=== PATIENT | female | born 1945 | race Caucasian/White ===

== ENCOUNTER 2019-12-31 11:12 | Inpatient (IN) | payer MEDICARE, OTHER ==
--- NOTE | 2019-12-31 11:34 | EDM.PDOC ---
ED HPI GENERAL MEDICAL PROBLEM - General Stated Complaint: right sided pain Time Seen by Provider: 12/31/19 11:15 Source of Information: Reports: Patient History Limitations: Reports: No Limitations - History of Present Illness INITIAL COMMENTS - FREE TEXT/NARRATIVE: Patient comes emergency department today from home with complaints of severe right-sided lower chest pain and right upper abdomen pain. Patient has a significant history of lung cancer with metastatic disease to the brain. She is here from [facility]. She was just set up with hospice yesterday at home as the initial intake. She has had increasing weakness and falls at home over the past couple of weeks. She has had very little appetite. She has eaten very little. She drinks very little fluids. She has developed this right upper quadrant right lateral chest pain over the past couple weeks it is getting so severe that she can barely move. She has not been taking anything for pain for it at home. She has had some nausea no vomiting. No chest pain. No shortness of breath difficulty breathing cough or congestion. She denies any fever or chills. She denies any hematuria dysuria or urinary frequency. No loss of taste or smell. No sinus congestion drainage or pressure. No black or tarry stools or diarrhea. They did speak with the hospice nurse this morning and she was advised to come to the emergency department. He does have a history of atrial fibrillation for which she was on Eliquis until just a couple of months ago that they took her off because of some type of concern intracranial with her metastatic lung cancer. Right Thoracic Pain Score (Numeric/FACES): 7 - Related Data Allergies Allergy/AdvReac Type Severity Reaction Status Date / Time No Known Allergies Allergy Verified 12/31/19 12:53 Home Meds: Home Meds . [Unable to Verify Home Med List] 12/31/19 [History] ED ROS GENERAL - Review of Systems Review Of Systems: Comprehensive ROS is negative, except as noted in HPI. ED EXAM, GENERAL - Physical Exam Exam: See Below Free Text/Narrative:: Is a very frail-appearing 74-year-old female that appears moderately ill. She is alert appropriate. No acute distress. She appears somewhat cachectic. Exam Limited By: No Limitations General Appearance: Alert, WD/WN, No Apparent Distress, Cachetic Eye Exam: Bilateral Eye: EOMI Ears: Normal External Exam, Normal TMs Nose: Normal Inspection Throat/Mouth: Normal Teeth, Normal Gums. No: Normal Inspection (Mucosa is exquisitely dry. Her lips are flat and cracked) Head: Atraumatic, Normocephalic Neck: Normal Inspection, Supple, Non-Tender Respiratory/Chest: No Respiratory Distress, Lungs Clear, Normal Breath Sounds, No Accessory Muscle Use, Chest Non-Tender (Patient of the chest does not elicit any tenderness. There is no bruising swelling ecchymosis other signs of trauma to the chest.) Cardiovascular: Normal Peripheral Pulses, Regular Rate, Rhythm, Tachycardia (Has a quite bounding tachycardic irregular pulse she does have a history of atrial fibrillation.), Irregularly Irregular GI/Abdominal: Normal Bowel Sounds, Soft, Guarding (She has guarding without rebound and negative Chacko sign to the right upper quadrant. Rest of the abdomen is soft and nontender nondistended.) Back Exam: Normal Inspection, Full Range of Motion Extremities: Normal Inspection, Normal Range of Motion, Non-Tender, No Pedal Edema, Normal Capillary Refill Neurological: Alert, Oriented, Normal Cognition, No Motor/Sensory Deficits Psychiatric: Flat Affect Skin Exam: Dry, Intact, Cool, Pallor #1 Interpretation EKG Date: 12/31/19 Time: 12:09 Rhythm: A-Fib Rate (Beats/Min): 143 [place]: Normal P-Wave: Absent QRS: Normal ST-T: Normal QT: Normal Comparison: NA - No Prior EKG Course - Vital Signs Last Recorded V/S: Last Vital Signs Temp 98.1 F 12/31/19 10:50 Pulse 110 H 12/31/19 14:51 Resp 28 H 12/31/19 14:51 BP 85/58 L 12/31/19 14:51 Pulse Ox 95 12/31/19 14:51 - Orders/Labs/Meds Orders: Active Orders 24 hr Category Date Time Status Sodium Chloride 0.9% [Saline Flush] Med 12/31/19 11:37 Active 10 ml FLUSH ASDIRECTED PRN Peripheral IV Insertion Adult [OM.PC] Stat Oth 12/31/19 11:36 Ordered Medication Orders Sodium Chloride (Saline Flush) 10 ml FLUSH ASDIRECTED PRN PRN Reason: Keep Vein Open Labs: Laboratory Tests 12/31/19 12/31/19 12/31/19 Range/Units 11:10 11:49 11:49 WBC 11.7 H (4.0-10.0) x10^3/uL RBC 3.94 L (4.00-5.50) x10^6/uL Hgb 12.2 (12.0-16.0) g/dL Hct 38.1 (33.0-47.0) % MCV 96.7 H (78.0-93.0) fL MCH 31.0 (26.0-32.0) pg MCHC 32.0 (32.0-36.0) g/dL RDW Coeff of Martín 17.1 H (10.0-15.0) % Plt Count 196 (130-400) x10^3/uL Add Manual Diff Yes Neutrophils % (Manual) 87 H (50-80) % Band Neutrophils % 2 (0-6) % Lymphocytes % (Manual) 6 L (25-50) % Monocytes % (Manual) 2 (2-11) % Metamyelocytes % 3 H (0) % Nucleated RBCs 2 (0-5) /100WBC Platelet Estimate Adequate Anisocytosis 1+ slight H Macrocytosis 1+ slight H Sodium 143 (136-145) mmol/L Potassium 3.6 (3.5-5.1) mmol/L Chloride 105 (98-107) mmol/L Carbon Dioxide 26 (21-32) mmol/L Anion Gap 15.6 (10-20) mmol/L BUN 29 H (7-18) mg/dL Creatinine 1.2 H (0.55-1.02) mg/dL Est Cr Clr Drug Dosing TNP Estimated GFR (MDRD) 44 Glucose 134 H (74-106) mg/dL Lactic Acid (0.4-2.0) mmol/L Calcium 8.9 (8.5-10.1) mg/dL Corrected Calcium 9.94 (8.5-10.1) mg/dL Total Bilirubin 0.9 (0.2-1.0) mg/dL AST 16 (15-37) U/L ALT 15 (14-59) U/L Alkaline Phosphatase 79 (46-116) U/L Troponin I 0.035 (<=0.056) ng/mL C-Reactive Protein (<=0.9) mg/dL Total Protein 6.7 (6.4-8.2) g/dL Albumin 2.7 L (3.4-5.0) g/dL Globulin 4.0 Albumin/Globulin Ratio 0.68 Lipase 29 L (73-393) U/L SARS CoV-2 RNA Rapid DIXON Negative (NEGATIVE) 12/31/19 12/31/19 Range/Units 11:49 11:49 WBC (4.0-10.0) x10^3/uL RBC (4.00-5.50) x10^6/uL Hgb (12.0-16.0) g/dL Hct (33.0-47.0) % MCV (78.0-93.0) fL MCH (26.0-32.0) pg MCHC (32.0-36.0) g/dL RDW Coeff of Martín (10.0-15.0) % Plt Count (130-400) x10^3/uL Add Manual Diff Neutrophils % (Manual) (50-80) % Band Neutrophils % (0-6) % Lymphocytes % (Manual) (25-50) % Monocytes % (Manual) (2-11) % Metamyelocytes % (0) % Nucleated RBCs (0-5) /100WBC Platelet Estimate Anisocytosis Macrocytosis Sodium (136-145) mmol/L Potassium (3.5-5.1) mmol/L Chloride (98-107) mmol/L Carbon Dioxide (21-32) mmol/L Anion Gap (10-20) mmol/L BUN (7-18) mg/dL Creatinine (0.55-1.02) mg/dL Est Cr Clr Drug Dosing Estimated GFR (MDRD) Glucose (74-106) mg/dL Lactic Acid 3.4 H* (0.4-2.0) mmol/L Calcium (8.5-10.1) mg/dL Corrected Calcium (8.5-10.1) mg/dL Total Bilirubin (0.2-1.0) mg/dL AST (15-37) U/L ALT (14-59) U/L Alkaline Phosphatase (46-116) U/L Troponin I (<=0.056) ng/mL C-Reactive Protein 14.0 H (<=0.9) mg/dL Total Protein (6.4-8.2) g/dL Albumin (3.4-5.0) g/dL Globulin Albumin/Globulin Ratio Lipase (73-393) U/L SARS CoV-2 RNA Rapid DIXON (NEGATIVE) Meds: Medications Generic Name Dose Route Start Last Admin Trade Name Freq PRN Reason Stop Dose Admin Sodium Chloride 10 ml 12/31/19 11:37 Saline Flush FLUSH ASDIRECTED PRN Keep Vein Open Discontinued Medications Generic Name Dose Route Start Last Admin Trade Name Saturninoq PRN Reason Stop Dose Admin Ceftriaxone Sodium 1 gm 12/31/19 14:43 12/31/19 15:13 Rocephin IVPUSH 12/31/19 14:44 1 gm STAT ONE Administration Diltiazem HCl 20 mg 12/31/19 12:59 12/31/19 13:04 Cardizem IVPUSH 12/31/19 13:00 20 mg ONETIME ONE Administration Lactated Ringer's 1,000 mls @ 999 mls/hr 12/31/19 11:36 12/31/19 13:41 Ringers, Lactated IV 12/31/19 12:36 200 mls/hr ONETIME ONE Administration Azithromycin 500 mg/ Sodium 250 mls @ 250 mls/hr 12/31/19 14:43 12/31/19 15:14 Chloride IV 12/31/19 15:42 250 mls/hr STAT ONE Administration Iopamidol 100 ml 12/31/19 13:33 12/31/19 13:35 Isovue-300 (61%) IVPUSH 12/31/19 13:34 100 ml ONETIME ONE Administration Morphine Sulfate 2 mg 12/31/19 11:37 12/31/19 11:55 Morphine IVPUSH 12/31/19 11:38 2 mg ONETIME ONE Administration Ondansetron HCl 4 mg 12/31/19 11:36 12/31/19 11:55 Zofran IV 12/31/19 11:37 4 mg ONETIME ONE Administration - Radiology Interpretation Free Text/Narrative:: Chest x-ray per radiology shows scattered areas of parenchymal opacification in both lungs. These are somewhat nodular but overall nonmasslike. Findings are most prominent in the right upper and left lower lobes. Correlate for signs of infection this could represent pneumonia. As of note the patient does have known metastatic lung disease. CT abdomen pelvis per radiology no evidence of bowel ischemia. Heterogeneous density and enhancement throughout the liver. Findings are nonspecific but can be seen with hepatocellular disease/hepatitis. Trace fluid scattered throughout the abdomen and pelvis also nonspecific no drainable fluid collections. - Re-Assessments/Exams Free Text/Narrative Re-Assessment/Exam: 12/31/19 14:25 Patient does have a longstanding history of atrial fibrillation. LR 500 mill bolus and 125 an hour as I feel that most likely her tachycardia could be due to malnutrition and dehydration. The patient was also given 2mg of morphine IV and zofran 4mg IVP Does have a quite high lactic at 3.4. We will continue IV hydration in the emergency department. No clear evidence on her chest x-ray of pneumonia. Although she does complain of increased shortness of breath. She has no fever or chills. She does have a known history cancer. 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 She was given 20 mg of Cardizem IV push with improvement of her heart rate to the 80s to 90s. 12/31/19 15:49 Slowly her heart rate did take back up into the 120s to 130s. There could be a component of dehydration as well as A. fib with RVR. She is much more comfortable following the morphine. Her blood pressure is rather labile and about 85-90. Not been able to void yet. I will cover her for possible pneum onia with a azithromycin and ceftriaxone. I had a rather extended conversation with the patient's niece who is the primary caregiver. And I did speak with the patient briefly but she is quite sleepy after the morphine. They do not want anything aggressive at this time for management. They would rather have comfort measures for her in the hospital. She is not actively on hospice. I spoke with Dr. Pacheco here in [place]. HPI ER course findings and concerns where discussed with her. she is comfortable with admission her for comfort cares in [place]. Departure - Departure Time of Disposition: 15:00 Disposition: Admitted As Inpatient 67 Clinical Impression: Pneumonia Qualifiers: Pneumonia type: due to unspecified organism Laterality: unspecified laterality Lung location: unspecified part of lung Qualified Code(s): J18.9 - Pneumonia, unspecified organism Sepsis Qualifiers: Sepsis type: sepsis due to unspecified organism Sepsis acute organ dysfunction status: with acute organ dysfunction Severe sepsis acute organ dysfunction type: unspecified Severe sepsis shock status: unspecified Qualified Code(s): A41.9 - Sepsis, unspecified organism; R65.20 - Severe sepsis without septic shock Metastatic lung cancer (metastasis from lung to other site) Qualifiers: Laterality: unspecified laterality Qualified Code(s): C34.90 - Malignant neoplasm of unspecified part of unspecified bronchus or lung - Discharge Information Sepsis Event Note (ED) - Focused Exam Vital Signs: Vital Signs Temp Pulse Resp BP Pulse Ox 12/31/19 14:51 110 H 28 H 85/58 L 95 12/31/19 13:15 81 16 84/51 L 94 L 12/31/19 10:50 98.1 F 104 H 24 H 111/58 L 92 L - My Orders Last 24 Hours: My Active Orders 12/31/19 11:36 Peripheral IV Insertion Adult [OM.PC] Stat 12/31/19 11:37 Sodium Chloride 0.9% [Saline Flush] 10 ml FLUSH ASDIRECTED PRN - Assessment/Plan Last 24 Hours: My Active Orders 12/31/19 11:36 Peripheral IV Insertion Adult [OM.PC] Stat 12/31/19 11:37 Sodium Chloride 0.9% [Saline Flush] 10 ml FLUSH ASDIRECTED PRN
[2019-12-31] MEDS ORDERED: Ondansetron 4 MG/2 ML SDV IV ONE (11:36)
[2019-12-31] MEDS ORDERED: Sodium Chloride 0.9% 10 ML Syringe FLUSH PRN (11:37)
[2019-12-31] MEDS ORDERED: Morphine 2 MG/ML SYRINGE IVPUSH ONE (11:37)
[2019-12-31] MEDS: Lactated Ringers 1,000 ML IV ONE ×2 (11:54→13:41)
[2019-12-31 12:18] LABS: ANION GAP 15.6 mmol/L (10-20); CHLORIDE,CL 105 mmol/L (98-107); SODIUM,NA 143 mmol/L (136-145)
--- NOTE | 2019-12-31 12:38 | CR ---
[id number] RAD/RAD Chest PA or AP 1V EXAM: RAD Chest PA or AP 1V INDICATION: SHORTNESS OF BREATH. COMPARISON: None. DISCUSSION: Scattered areas of parenchymal opacification in both lungs. These are somewhat nodular but overall nonmasslike. Findings are most prominent in the right upper and left lower lobes. Correlate for signs of infection, as this could represent pneumonia. If findings are clinically equivocal, noncontrast chest CT is recommended to evaluate for underlying pulmonary masses. IMPRESSION: As above. Varinder Joy MD 12/31/19 [id number] Thank you for allowing us to participate in the care of your patient.
[2019-12-31] MEDS ORDERED: Diltiazem 50 MG/10 ML SDV IVPUSH ONE (12:59)
[2019-12-31] MEDS ORDERED: Iopamidol 612 MG/ML 100 ML Bottle IVPUSH ONE (13:33)
--- NOTE | 2019-12-31 14:17 | CT ---
[id number] CT/CT Abdomen Pelvis W IV EXAM: CT Abdomen Pelvis W IV CLINICAL DATA: ABDOMINAL PAIN. RUQ ELEVATED LACTIC. HX LUNG CANCER. COMPARISON STUDY: None. FINDINGS: Small bilateral pleural effusions. Bibasal parenchymal opacities. Advanced peribronchial thickening in both lower lobes right greater than left with opacified subsegmental airways. Findings could represent bronchitis/bronchiolitis or aspiration. Underlying changes of pneumonia in the left lung base are possible. Liver demonstrates heterogeneous attenuation and enhancement without focal lesion or definitive evidence of biliary ductal dilation. Findings are nonspecific, correlate with LFTs. Gallbladder demonstrates wall thickening. No radiographically evident stone or mass. No evidence of extrahepatic ductal dilation. No pancreas head mass or pancreas duct dilation. Trace free fluid scattered throughout the abdomen/pelvis. No drainable fluid collection to suggest abscess. No pneumoperitoneum or other evidence to suggest viscus perforation. No evidence of enteritis, bowel obstruction, or colitis. IMPRESSION: No evidence of bowel ischemia. Heterogeneous density and enhancement throughout the liver. Findings are nonspecific but can be seen with hepatocellular disease/hepatitis. Trace free fluid scattered throughout the abdomen and pelvis, also nonspecific. No drainable fluid collections. Abnormal appearance of the lung bases suggesting possible pneumonia and fluid retention, described above. Varinder Joy MD 12/31/19 [id number] Thank you for allowing us to participate in the care of your patient.
[2019-12-31] MEDS ORDERED: Azithromycin 500 MG in Sodium Chloride 0.9% 250 ML IV ONE (14:43)
[2019-12-31] MEDS ORDERED: cefTRIAXone 1 GM Vial IVPUSH ONE (14:43)
[2019-12-31] MEDS ORDERED: Morphine 2 MG/ML SYRINGE IVPUSH PRN (16:21)
[2019-12-31] MEDS ORDERED: Ondansetron 4 MG Tab.DIS PO PRN (16:21)
[2019-12-31] MEDS ORDERED: oxyCODONE 5 MG Tab PO PRN (16:21)
[2019-12-31] MEDS ORDERED: Acetaminophen 325 MG Tab PO PRN (16:21)
--- NOTE | 2019-12-31 16:42 | PCM.HP.2 ---
H&P History of Present Illness - General Date of Service: 12/31/19 Admit Problem/Dx: Admission Diagnosis/Problem Admission Diagnosis/Problem #Pneumonia, CAP #Dehydration #Metastatic Lung Cancer Source of Information: Patient, Family History Limitations: Reports: Altered Mental Status - History of Present Illness Initial Comments - Free Text/Narative: Heidi is a 74yoF who presented to the ED today from home with complaints of severe right-sided lower chest pain and right upper abdomen pain. Due to patient being sedated much of this history is taken from the ED physician as well as the niece who is with her: Patient has a significant history of lung cancer with metastatic disease to the brain. She is here from [place], traveled to [place] about 1 month back to visit family. Prior to coming back she had underwent brain surgery for some of the mets; was told by oncologist after this that they would not pursue further chemo/radition and that she should expect about 6 months. She has been donig fairly well since arriving to [place] until this week when she stopped eating and drinking as well; also had concurrent weakness and falls. Over the last few days has also developed a cough. This morning due to the cough and bad RUQ/rib pain her family brought her into the ED for further evaluation. She was just set up with hospice yesterday at home as the initial intake; hopes that they will be able to continue cares at discharge. They did speak with the hospice nurse this morning and she was advised to come to the emergency department. Patient is very stoic and does not take anything for the pain at home. Denied any other symptoms to the ED provider. Most pertinent PMH is a.fib (no longer on Eliquis due to concern for brain bleed) as well as HTN. ER workup: She was noted to be quite tachycardic on presentation. CBC demonstrated mild leukocytosis of 11.7, LA of 3.4, Cr 1.2, BUN 29, COVID neg. CXR in the ED demonstrated "scattered areas of parenchymal opacification in both lungs. These are somewhat nodular but overall nonmasslike. Findings are most p rominent in the right upper and left lower lobes. Correlate for signs of infection this could represent pneumonia. As of note the patient does have known metastatic lung disease." CT A/P demonstrated "no evidence of bowel ischemia. Heterogeneous density and enhancement throughout the liver. Findings are nonspecific but can be seen with hepatocellular disease/hepatitis. Trace fluid scattered throughout the abdomen and pelvis also nonspecific no drainable fluid collections." he was given 500mL bolus and continued on 200mL/hr. Also given 20mg Cardizem push with improvement of her rates (80-90s). SHe was given 1 dose of Rocephin 1g as well as Azithromycin 500mg for CAP. She was given M orphine 2mg for the pain At this time the patient is very comfortable. Will arouse to gentle stimu lation. Is requiring 4L 02 per NC. She has no complaints and states that the pain is well controlled. Right Thoracic Pain Score (Numeric/FACES): 7 - Related Data Allergies/Adverse Reactions: Allergies Allergy/AdvReac Type Severity Reaction Status Date / Time No Known Allergies Allergy Verified 12/31/19 12:53 Home Medications: Home Meds Docusate Sodium 100 mg PO TID PRN 12/31/19 [History] Ferrous Sulfate 325 mg PO DAILY 12/31/19 [History] Lovastatin 20 mg PO BEDTIME 12/31/19 [History] Melatonin 10 mg PO BEDTIME PRN 12/31/19 [History] Memantine [Namenda] 10 mg PO BID 12/31/19 [History] Omeprazole 20 mg PO DAILY PRN 12/31/19 [History] Propranolol [Inderal] 40 mg PO BID 12/31/19 [History] dexAMETHasone [Dexamethasone] 4 mg PO TID PRN 12/31/19 [History] dilTIAZem HCL [Diltiazem 24Hr ER] 480 mg PO DAILY 12/31/19 [History] lisinopriL [Lisinopril] 20 mg PO DAILY 12/31/19 [History] Past Medical History Cardiovascular History: Reports: Afib, Hypertension Oncologic (Cancer) History: Reports: Brain, Lung (metastatic lung cancer (brain and now suspected liver)) Social & Family History - Family History Other Oncologic Family History: Sister - pancreatic cancer - Tobacco Use Tobacco Use Status *Q: Former Tobacco User Used Tobacco, but Quit: Yes Month/Year Tobacco Last Used: 2018 - Recreational Drug Use Recreational Drug Use: No H&P Review of Systems - Review of Systems: Review Of Systems: Comprehensive ROS is negative, except as noted in HPI. Exam - Exam Exam: See Below - Vital Signs Vital Signs: Last Vital Signs Temp 98 F 12/31/19 15:47 Pulse 63 12/31/19 15:47 Resp 22 H 12/31/19 15:47 BP 108/68 12/31/19 15:47 Pulse Ox 85 L 12/31/19 15:47 Weight: 130 lb - Exam Quality Assessment: Supplemental Oxygen (4L, satting in the upper 80s) General: Lethargic (arousable) HEENT: Other (Mucous membranes dry, tounge cracked) Neck: Supple Lungs: Normal Respiratory Effort Cardiovascular: Regular Rate, Irregular Rhythm GI/Abdominal Exam: Normal Bowel Sounds, Soft, Non-Tender (Female) Exam: Deferred Rectal (Female) Exam: Deferred Extremities: Normal Inspection, No Pedal Edema Peripheral Pulses: 2+: Radial (L), Radial (R) Skin: Warm, Dry, Other (significant tenting noted) Neurological: Other (unable to test due to degree of sedation) Neuro Extensive - Mental Status: Normal Mood/Affect, Opens Eyes to Commands, Other (sedated, lethargic) - Patient Data Lab Results Last 24 hrs: Laboratory Results - last 24 hr 12/31/19 12/31/19 12/31/19 Range/Units 11:10 11:49 11:49 WBC 11.7 H (4.0-10.0) x10^3/uL RBC 3.94 L (4.00-5.50) x10^6/uL Hgb 12.2 (12.0-16.0) g/dL Hct 38.1 (33.0-47.0) % MCV 96.7 H (78.0-93.0) fL MCH 31.0 (26.0-32.0) pg MCHC 32.0 (32.0-36.0) g/dL RDW Coeff of Martín 17.1 H (10.0-15.0) % Plt Count 196 (130-400) x10^3/uL Add Manual Diff Yes Neutrophils % (Manual) 87 H (50-80) % Band Neutrophils % 2 (0-6) % Lymphocytes % (Manual) 6 L (25-50) % Monocytes % (Manual) 2 (2-11) % Metamyelocytes % 3 H (0) % Nucleated RBCs 2 (0-5) /100WBC Platelet Estimate Adequate Anisocytosis 1+ slight H Macrocytosis 1+ slight H Sodium 143 (136-145) mmol/L Potassium 3.6 (3.5-5.1) mmol/L Chloride 105 (98-107) mmol/L Carbon Dioxide 26 (21-32) mmol/L Anion Gap 15.6 (10-20) mmol/L BUN 29 H (7-18) mg/dL Creatinine 1.2 H (0.55-1.02) mg/dL Est Cr Clr Drug Dosing TNP Estimated GFR (MDRD) 44 Glucose 134 H (74-106) mg/dL Lactic Acid (0.4-2.0) mmol/L Calcium 8.9 (8.5-10.1) mg/dL Corrected Calcium 9.94 (8.5-10.1) mg/dL Total Bilirubin 0.9 (0.2-1.0) mg/dL AST 16 (15-37) U/L ALT 15 (14-59) U/L Alkaline Phosphatase 79 (46-116) U/L Troponin I 0.035 (<=0.056) ng/mL C-Reactive Protein (<=0.9) mg/dL Total Protein 6.7 (6.4-8.2) g/dL Albumin 2.7 L (3.4-5.0) g/dL Globulin 4.0 Albumin/Globulin Ratio 0.68 Lipase 29 L (73-393) U/L SARS CoV-2 RNA Rapid DIXON Negative (NEGATIVE) 12/31/19 12/31/19 Range/Units 11:49 11:49 WBC (4.0-10.0) x10^3/uL RBC (4.00-5.50) x10^6/uL Hgb (12.0-16.0) g/dL Hct (33.0-47.0) % MCV (78.0-93.0) fL MCH (26.0-32.0) pg MCHC (32.0-36.0) g/dL RDW Coeff of Martín (10.0-15.0) % Plt Count (130-400) x10^3/uL Add Manual Diff Neutrophils % (Manual) (50-80) % Band Neutrophils % (0-6) % Lymphocytes % (Manual) (25-50) % Monocytes % (Manual) (2-11) % Metamyelocytes % (0) % Nucleated RBCs (0-5) /100WBC Platelet Estimate Anisocytosis Macrocytosis Sodium (136-145) mmol/L Potassium (3.5-5.1) mmol/L Chloride (98-107) mmol/L Carbon Dioxide (21-32) mmol/L Anion Gap (10-20) mmol/L BUN (7-18) mg/dL Creatinine (0.55-1.02) mg/dL Est Cr Clr Drug Dosing Estimated GFR (MDRD) Glucose (74-106) mg/dL Lactic Acid 3.4 H* (0.4-2.0) mmol/L Calcium (8.5-10.1) mg/dL Corrected Calcium (8.5-10.1) mg/dL Total Bilirubin (0.2-1.0) mg/dL AST (15-37) U/L ALT (14-59) U/L Alkaline Phosphatase (46-116) U/L Troponin I (<=0.056) ng/mL C-Reactive Protein 14.0 H (<=0.9) mg/dL Total Protein (6.4-8.2) g/dL Albumin (3.4-5.0) g/dL Globulin Albumin/Globulin Ratio Lipase (73-393) U/L SARS CoV-2 RNA Rapid DIXON (NEGATIVE) Result Diagrams: 12/31/19 11:49 12/31/19 11:49 Sepsis Event Note - Evaluation Sepsis Screening Result: No Definite Risk - Focused Exam Vital Signs: Vital Signs Temp Temp Pulse Resp BP Pulse Ox 12/31/19 15:47 98 F 63 22 H 108/68 85 L 12/31/19 14:51 110 H 28 H 85/58 L 95 12/31/19 13:15 81 16 84/51 L 94 L 12/31/19 10:50 98.1 F 104 H 24 H 111/58 L 92 L *Q Meaningful Use (ADM) - VTE *Q VTE Pharmacological Contraindications *Q: Risk of Bleeding - Problem List (1) Sepsis SNOMED Code(s): 82279567 ICD Code: A41.9 - SEPSIS, UNSPECIFIED ORGANISM Status: Acute Current Visit: Yes Qualifiers: Sepsis type: sepsis due to unspecified organism Sepsis acute organ dy sfunction status: with acute organ dysfunction Severe sepsis acute organ dysfunction type: unspecified Severe sepsis shock status: unspecified Qualified Code(s): A41.9 - Sepsis, unspecified organism; R65.20 - Severe sepsis without septic shock (2) Pneumonia SNOMED Code(s): 566326753 ICD Code: J18.9 - PNEUMONIA, UNSPECIFIED ORGANISM Status: Acute Current Visit: Yes Qualifiers: Pneumonia type: due to unspecified organism Laterality: unspecified laterality Lung location: unspecified part of lung Qualified Code(s): J18.9 - Pneumonia, unspecified organism (3) Metastatic lung cancer (metastasis from lung to other site) SNOMED Code(s): 21929465, 778205377 ICD Code: C34.90 - MALIGNANT NEOPLASM OF UNSP PART OF UNSP BRONCHUS OR LUNG Status: Acute Current Visit: Yes Qualifiers: Laterality: unspecified laterality Qualified Code(s): C34.90 - Malignant neoplasm of unspecified part of unspecified bronchus or lung (4) Dehydration SNOMED Code(s): 51865681 ICD Code: E86.0 - DEHYDRATION Status: Acute Current Visit: Yes (5) Afib SNOMED Code(s): 57386802 ICD Code: I48.91 - UNSPECIFIED ATRIAL FIBRILLATION Status: Acute Current Visit: Yes Problem List Initiated/Reviewed/Updated: Yes Orders Last 24hrs: Active Orders 24 hr Category Date Time Status Patient Status [ADT] Routine ADT 12/31/19 16:22 Ordered Cardiac Monitoring [RC] CONTINUOUS Care 12/31/19 16:25 Ordered Intake and Output [RC] QSHIFT Care 12/31/19 16:25 Ordered Oxygen Therapy [RC] PRN Care 12/31/19 16:22 Ordered Pulse Oximetry [RC] CONTINUOUS Care 12/31/19 16:25 Ordered Up With Assistance [RC] ASDIRECTED Care 12/31/19 16:21 Ordered VTE/DVT Education [RC] PER UNIT ROUTINE Care 12/31/19 16:22 Ordered Vital Signs [RC] Q4H Care 12/31/19 16:22 Ordered Regular Diet [DIET] Diet 12/31/19 Dinner Ordered BASIC METABOLIC PANEL,BMP [CHEM] AM Lab 01/01/20 05:11 Ordered CBC WITH AUTO DIFF [HEME] AM Lab 01/01/20 05:11 Ordered LACTIC ACID [CHEM] Urgent Lab 12/31/19 16:00 Ordered Acetaminophen [TylenoL] Med 12/31/19 16:21 Ordered 650 mg PO Q4H PRN Morphine Med 12/31/19 16:21 Ordered 1 mg IVPUSH Q2H PRN Ondansetron [Zofran ODT] Med 12/31/19 16:21 Ordered 4 mg PO Q4H PRN Sodium Chloride 0.9% [Saline Flush] Med 12/31/19 11:37 Active 10 ml FLUSH ASDIRECTED PRN oxyCODONE Med 12/31/19 16:21 Ordered 5 mg PO Q4H PRN Peripheral IV Insertion Adult [OM.PC] Stat Oth 12/31/19 11:36 Ordered VTE Pharmacological Contraindications [AST] Per Unit Oth 12/31/19 16:21 Ordered Routine Resuscitation Status Routine Resus Stat 12/31/19 16:21 Ordered Medication Orders Sodium Chloride (Saline Flush) 10 ml FLUSH ASDIRECTED PRN PRN Reason: Keep Vein Open Assessment/Plan Comment:: # Sepsis secondary to suspected pneumonia # Metastatic Lung cancer, known mets to brain, suspected mets to liver # Dehydration # A.fib - Patient came in with cough and vital sign instability (hypotension, tachycardia), LA 3.4 - Vitals responding well to Fluid bolus as well as Diltiazem 20 - CXR concerning for possible pneumonia; recieved Rocephin 1g and Azithro 500mg in the ED @ 1400 - CTa/p concerning for new liver mets Plan: - Admit to inpatient status - Repeat LA now - Continue IVF at 200mL until this bag is done, after that switch to 100mL/hr - O2 per NC as needed to maintain sats above 88% - I+Os - Pain control: tylenol, oxy 5mg, Morphine 1mg (mild/mod/sev) - Abx: continue Rocephin 1 - CBC and BMP in the am - Telemetry - Discussed with patient/niece that we will treat with IVF and abx. We will plan to involve hospice for DC planning if she does well through the weekend Chronic: HTN - holding lisinopril 20mg daily A.fib - continue diltiazem 480 daily, propranolol 40mg BID Dementia - continue memantine 10mg BID HLD - continue lovastatin 20mg daily Constipation - continue docusae 100mg TID PRN Insomnia - schedule melatonin 10mg bedtime (PRN at home) Anemia - continue home iron GERD - continue home omeprazole 20mg daily PRN Appetite stim - holding home dexamethasone 4mg daily for 3 days PRN for appetite stim (give omeprazole with) Diet: Regular Activity: up with assistance DVT: SCDs (concern for brain bleed) Code Status: DNR/DNI per niece, she will confirm with family and update if necessary - Mortality Measure Prognosis:: Poor
[2019-12-31] MEDS ORDERED: Docusate Sodium 100 MG Cap PO PRN (17:17)
[2019-12-31] MEDS ORDERED: Omeprazole 20 MG Cap.CR PO PRN (17:17)
[2019-12-31] MEDS ORDERED: atorvaSTATin 10 MG Tab PO SCH (20:00)
[2019-12-31] MEDS ORDERED: Melatonin 3 MG Tab PO SCH (20:00)
[2019-12-31] MEDS: Sodium Chloride 0.9% 1,000 ML IV SCH (20:20)
[2019-12-31] MEDS: Propranolol 20 MG Tab PO SCH (20:22)
[2019-12-31] MEDS: Memantine 10 MG Tab PO SCH (20:23)
[2020-01-01] MEDS: Sodium Chloride 0.9% 1,000 ML IV SCH (06:47)
[2020-01-01] MEDS: Propranolol 20 MG Tab PO SCH (07:46)
[2020-01-01] MEDS: Memantine 10 MG Tab PO SCH (07:46)
[2020-01-01] MEDS ORDERED: Ferrous Sulfate 325 MG Tab PO SCH (08:00)
[2020-01-01] MEDS ORDERED: Azithromycin 500 MG in Sodium Chloride 0.9% 250 ML IV SCH (08:00)
[2020-01-01] MEDS ORDERED: Diltiazem 240 MG Cap.ER PO SCH ×2 (08:00)
[2020-01-01] MEDS ORDERED: cefTRIAXone 1 GM Vial IVPUSH SCH (08:00)
[2020-01-01 08:11] LABS: ANION GAP 12.7 mmol/L (10-20)
--- NOTE | 2020-01-01 09:45 | PCM.PN ---
- General Info Date of Service: 01/01/20 Admission Dx/Problem (Free Text): Admission Diagnosis/Problem Admission Diagnosis/Problem #Pneumonia, CAP #Dehydration #Metastatic Lung Cancer Subjective Update: Patient did well overnight. Satting in the upper 80s/low 90s on RA. More alert as the morphine wore off. 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 Staff did have to straight cath this morning for ~400mL. Patient c/o head pain as well as right sided rib/upper abdominal pain. Received tylenol prior to me seeing her, pain still 08/16. We discussed her CT findings from yesterday and concern for new mets to the liver. We discussed plan to continue fluid hydration as well as IV abx. If she is looking better can look into home with hospice early this week. Patient is OK with this plan. Does voice that she feels she is near the end, not coping the best with this. Feels bad for coming here and now putting her family out. - Patient Data Vitals - Most Recent: Last Vital Signs Temp 98.7 F 01/01/20 06:00 Pulse 122 H 01/01/20 06:00 Resp 17 01/01/20 06:00 BP 135/109 H 01/01/20 06:00 Pulse Ox 99 01/01/20 07:50 Weight - Most Recent: 130 lb I&O - Last 24 Hours: Intake & Output 12/31/19 01/01/20 01/01/20 22:59 06:59 14:59 Output Total 0 700 Balance 0 -700 Lab Results Last 24 Hours: Laboratory Results - last 24 hr 12/31/19 12/31/19 12/31/19 Range/Units 11:10 11:49 11:49 WBC 11.7 H (4.0-10.0) x10^3/uL RBC 3.94 L (4.00-5.50) x10^6/uL Hgb 12.2 (12.0-16.0) g/dL Hct 38.1 (33.0-47.0) % MCV 96.7 H (78.0-93.0) fL MCH 31.0 (26.0-32.0) pg MCHC 32.0 (32.0-36.0) g/dL RDW Coeff of Martín 17.1 H (10.0-15.0) % Plt Count 196 (130-400) x10^3/uL Neut % (Auto) (50.0-80.0) % Lymph % (Auto) (25.0-50.0) % [place] % (Auto) (2.0-11.0) % Eos % (Auto) (0.0-4.0) % Baso % (Auto) (0.2-1.2) % Add Manual Diff Yes Neutrophils % (Manual) 87 H (50-80) % Band Neutrophils % 2 (0-6) % Lymphocytes % (Manual) 6 L (25-50) % Monocytes % (Manual) 2 (2-11) % Metamyelocytes % 3 H (0) % Nucleated RBCs 2 (0-5) /100WBC Platelet Estimate Adequate Anisocytosis 1+ slight H Macrocytosis 1+ slight H Sodium 143 (136-145) mmol/L Potassium 3.6 (3.5-5.1) mmol/L Chloride 105 (98-107) mmol/L Carbon Dioxide 26 (21-32) mmol/L Anion Gap 15.6 (10-20) mmol/L BUN 29 H (7-18) mg/dL Creatinine 1.2 H (0.55-1.02) mg/dL Est Cr Clr Drug Dosing TNP Estimated GFR (MDRD) 44 Glucose 134 H (74-106) mg/dL Lactic Acid (0.4-2.0) mmol/L Calcium 8.9 (8.5-10.1) mg/dL Corrected Calcium 9.94 (8.5-10.1) mg/dL Total Bilirubin 0.9 (0.2-1.0) mg/dL AST 16 (15-37) U/L ALT 15 (14-59) U/L Alkaline Phosphatase 79 (46-116) U/L Troponin I 0.035 (<=0.056) ng/mL C-Reactive Protein (<=0.9) mg/dL Total Protein 6.7 (6.4-8.2) g/dL Albumin 2.7 L (3.4-5.0) g/dL Globulin 4.0 Albumin/Globulin Ratio 0.68 Lipase 29 L (73-393) U/L SARS CoV-2 RNA Rapid DIXON Negative (NEGATIVE) 12/31/19 12/31/19 12/31/19 Range/Units 11:49 11:49 18:46 WBC (4.0-10.0) x10^3/uL RBC (4.00-5.50) x10^6/uL Hgb (12.0-16.0) g/dL Hct (33.0-47.0) % MCV (78.0-93.0) fL MCH (26.0-32.0) pg MCHC (32.0-36.0) g/dL RDW Coeff of Martín (10.0-15.0) % Plt Count (130-400) x10^3/uL Neut % (Auto) (50.0-80.0) % Lymph % (Auto) (25.0-50.0) % [place] % (Auto) (2.0-11.0) % Eos % (Auto) (0.0-4.0) % Baso % (Auto) (0.2-1.2) % Add Manual Diff Neutrophils % (Manual) (50-80) % Band Neutrophils % (0-6) % Lymphocytes % (Manual) (25-50) % Monocytes % (Manual) (2-11) % Metamyelocytes % (0) % Nucleated RBCs (0-5) /100WBC Platelet Estimate Anisocytosis Macrocytosis Sodium (136-145) mmol/L Potassium (3.5-5.1) mmol/L Chloride (98-107) mmol/L Carbon Dioxide (21-32) mmol/L Anion Gap (10-20) mmol/L BUN (7-18) mg/dL Creatinine (0.55-1.02) mg/dL Est Cr Clr Drug Dosing Estimated GFR (MDRD) Glucose (74-106) mg/dL Lactic Acid 3.4 H* 1.6 (0.4-2.0) mmol/L Calcium (8.5-10.1) mg/dL Corrected Calcium (8.5-10.1) mg/dL Total Bilirubin (0.2-1.0) mg/dL AST (15-37) U/L ALT (14-59) U/L Alkaline Phosphatase (46-116) U/L Troponin I (<=0.056) ng/mL C-Reactive Protein 14.0 H (<=0.9) mg/dL Total Protein (6.4-8.2) g/dL Albumin (3.4-5.0) g/dL Globulin Albumin/Globulin Ratio Lipase (73-393) U/L SARS CoV-2 RNA Rapid DIXON (NEGATIVE) 01/01/20 01/01/20 Range/Units 07:30 07:30 WBC 9.7 (4.0-10.0) x10^3/uL RBC 3.01 L (4.00-5.50) x10^6/uL Hgb 9.4 L D (12.0-16.0) g/dL Hct 30.1 L (33.0-47.0) % MCV 100.0 H D (78.0-93.0) fL MCH 31.2 (26.0-32.0) pg MCHC 31.2 L (32.0-36.0) g/dL RDW Coeff of Martín 17.2 H (10.0-15.0) % Plt Count 164 (130-400) x10^3/uL Neut % (Auto) 73.7 (50.0-80.0) % Lymph % (Auto) 15.6 L (25.0-50.0) % [place] % (Auto) 10.3 (2.0-11.0) % Eos % (Auto) 0.2 (0.0-4.0) % Baso % (Auto) 0.2 (0.2-1.2) % Add Manual Diff Neutrophils % (Manual) (50-80) % Band Neutrophils % (0-6) % Lymphocytes % (Manual) (25-50) % Monocytes % (Manual) (2-11) % Metamyelocytes % (0) % Nucleated RBCs (0-5) /100WBC Platelet Estimate Anisocytosis Macrocytosis Sodium 143 (136-145) mmol/L Potassium 3.7 (3.5-5.1) mmol/L Chloride 108 H (98-107) mmol/L Carbon Dioxide 26 (21-32) mmol/L Anion Gap 12.7 (10-20) mmol/L BUN 25 H (7-18) mg/dL Creatinine 1.0 (0.55-1.02) mg/dL Est Cr Clr Drug Dosing 46.64 Estimated GFR (MDRD) 54 Glucose 105 (74-106) mg/dL Lactic Acid (0.4-2.0) mmol/L Calcium 7.9 L (8.5-10.1) mg/dL Corrected Calcium (8.5-10.1) mg/dL Total Bilirubin (0.2-1.0) mg/dL AST (15-37) U/L ALT (14-59) U/L Alkaline Phosphatase (46-116) U/L Troponin I (<=0.056) ng/mL C-Reactive Protein (<=0.9) mg/dL Total Protein (6.4-8.2) g/dL Albumin (3.4-5.0) g/dL Globulin Albumin/Globulin Ratio Lipase (73-393) U/L SARS CoV-2 RNA Rapid DIXON (NEGATIVE) Med Orders - Current: Current Medications Acetaminophen (Tylenol) 650 mg PO Q4H PRN PRN Reason: Pain (Mild 1-3)/fever Last Admin: 01/01/20 07:46 Dose: 650 mg Documented by: Atorvastatin Calcium (Lipitor) 10 mg PO BEDTIME [facility] Last Admin: 12/31/19 20:23 Dose: 10 mg Documented by: Ceftriaxone Sodium (Rocephin) 1 gm IVPUSH DAILY [facility] Last Admin: 01/01/20 07:46 Dose: 1 gm Documented by: Diltiazem HCl (Dilacor Xr) 480 mg PO DAILY [facility] Last Admin: 01/01/20 07:46 Dose: 480 mg Documented by: Docusate Sodium (Colace) 100 mg PO TID PRN PRN Reason: Constipation Ferrous Sulfate (Ferrous Sulfate) 325 mg PO DAILY [facility] Last Admin: 01/01/20 07:46 Dose: 325 mg Documented by: Azithromycin 500 mg/ Sodium (Chloride) 250 mls @ 250 mls/hr IV DAILY [facility] Last Admin: 01/01/20 07:47 Dose: 250 mls/hr Documented by: Sodium Chloride (Normal Saline) 1,000 mls @ 100 mls/hr IV ASDIRECTED [facility] Last Admin: 01/01/20 06:47 Dose: 100 mls/hr Documented by: Melatonin (Melatonin) 9 mg PO BEDTIME [facility] Last Admin: 12/31/19 20:23 Dose: 9 mg Documented by: Memantine (Namenda) 10 mg PO BID [facility] Last Admin: 01/01/20 07:46 Dose: 10 mg Documented by: Morphine Sulfate (Morphine) 1 mg IVPUSH Q2H PRN PRN Reason: Pain (severe 7-10) Omeprazole (Omeprazole) 20 mg PO DAILY PRN PRN Reason: Abdominal Pain Ondansetron HCl (Zofran Odt) 4 mg PO Q4H PRN PRN Reason: nausea, able to take PO Oxycodone HCl (Oxycodone) 5 mg PO Q4H PRN PRN Reason: Pain (moderate 4-6) Propranolol HCl (Inderal) 40 mg PO BID [facility] Last Admin: 01/01/20 07:46 Dose: 40 mg Documented by: Sodium Chloride (Saline Flush) 10 ml FLUSH ASDIRECTED PRN PRN Reason: Keep Vein Open Last Admin: 01/01/20 07:47 Dose: 10 ml Documented by: Discontinued Medications Ceftriaxone Sodium (Rocephin) 1 gm IVPUSH STAT ONE Stop: 12/31/19 14:44 Last Admin: 12/31/19 15:13 Dose: 1 gm Documented by: Diltiazem HCl (Cardizem) 20 mg IVPUSH ONETIME ONE Stop: 12/31/19 13:00 Last Admin: 12/31/19 13:04 Dose: 20 mg Documented by: Diltiazem HCl (Dilacor Xr) 240 mg PO DAILY [facility] Lactated Ringer's (Ringers, Lactated) 1,000 mls @ 999 mls/hr IV ONETIME ONE Stop: 12/31/19 12:36 Last Admin: 12/31/19 13:41 Dose: 200 mls/hr Documented by: Azithromycin 500 mg/ Sodium (Chloride) 250 mls @ 250 mls/hr IV STAT ONE Stop: 12/31/19 15:42 Last Admin: 12/31/19 15:14 Dose: 250 mls/hr Documented by: Iopamidol (Isovue-300 (61%)) 100 ml IVPUSH ONETIME ONE Stop: 12/31/19 13:34 Last Admin: 12/31/19 13:35 Dose: 100 ml Documented by: Morphine Sulfate (Morphine) 2 mg IVPUSH ONETIME ONE Stop: 12/31/19 11:38 Last Admin: 12/31/19 11:55 Dose: 2 mg Documented by: Ondansetron HCl (Zofran) 4 mg IV ONETIME ONE Stop: 12/31/19 11:37 Last Admin: 12/31/19 11:55 Dose: 4 mg Documented by: - Exam Quality Assessment: Supplemental Oxygen General: Alert, Oriented, Cooperative, No Acute Distress HEENT: EOMI Neck: Supple Lungs: Clear to Auscultation, Other (tachypneic in the low 20s) Cardiovascular: Irregular Rhythm, Tachycardia (110's) GI/Abdominal Exam: Normal Bowel Sounds, Soft, Non-Tender Back Exam: Normal Inspection Extremities: Pedal Edema (trace, ankles bilaterally) Skin: Warm, Dry, Intact Neurological: No New Focal Deficit, Other (weak LLE (patient notes this is chronic)) Psy/Mental Status: Alert, Depressed Sepsis Event Note - Evaluation Sepsis Screening Result: Sepsis Risk - Focused Exam Vital Signs: Vital Signs Temp Pulse Resp BP Pulse Ox Pulse Ox 01/01/20 07:50 99 01/01/20 06:52 96 01/01/20 06:00 98.7 F 122 H 17 135/109 H 96 01/01/20 02:49 94 L 01/01/20 02:47 96 01/01/20 01:15 98.4 F 20 118/85 97 12/31/19 22:16 98 12/31/19 22:00 98.1 F 120 H 19 131/104 H 97 - Problem List & Annotations (1) Pneumonia SNOMED Code(s): 068012374 Code(s): J18.9 - PNEUMONIA, UNSPECIFIED ORGANISM Status: Acute Current Visit: Yes Qualifiers: Pneumonia type: due to unspecified organism Laterality: unspecified laterality Lung location: unspecified part of lung Qualified Code(s): J18.9 - Pneumonia, unspecified organism (2) Metastatic lung cancer (metastasis from lung to other site) SNOMED Code(s): 61089114, 454334936 Code(s): C34.90 - MALIGNANT NEOPLASM OF UNSP PART OF UNSP BRONCHUS OR LUNG Status: Acute Current Visit: Yes Qualifiers: Laterality: unspecified laterality Qualified Code(s): C34.90 - Malignant neoplasm of unspecified part of unspecified bronchus or lung (3) Dehydration SNOMED Code(s): 71344456 Code(s): E86.0 - DEHYDRATION Status: Acute Current Visit: Yes (4) Afib SNOMED Code(s): 71096592 Code(s): I48.91 - UNSPECIFIED ATRIAL FIBRILLATION Status: Acute Current Visit: Yes (5) Sepsis SNOMED Code(s): 89168359 Code(s): A41.9 - SEPSIS, UNSPECIFIED ORGANISM Status: Resolved Current Visit: Yes Qualifiers: Sepsis type: sepsis due to unspecified organism Sepsis acute organ dysfunction status: with acute organ dysfunction Severe sepsis acute organ dysfunction type: unspecified Severe sepsis shock status: unspecified Qualified Code(s): A41.9 - Sepsis, unspecified organism; R65.20 - Severe sepsis without septic shock - Problem List Review Problem List Initiated/Reviewed/Updated: Yes - My Orders Last 24 Hours: My Active Orders 12/31/19 16:21 Up With Assistance [RC] 08,20 Acetaminophen [TylenoL] 650 mg PO Q4H PRN Morphine 1 mg IVPUSH Q2H PRN Ondansetron [Zofran ODT] 4 mg PO Q4H PRN oxyCODONE 5 mg PO Q4H PRN VTE Pharmacological Contraindications [AST] Per Unit Routine Resuscitation Status Routine 12/31/19 16:22 Patient Status [ADT] Routine Oxygen Therapy [RC] 06,10,14,18,22,02 Vital Signs [RC] 06,10,14,18,22,02 12/31/19 16:25 Cardiac Monitoring [RC] 06,10,14,18,22,02 Intake and Output [RC] 06,18 Pulse Oximetry [RC] 06,10,14,18,22,02 12/31/19 17:08 Dietary Supplements [RC] 1130,1730 12/31/19 17:15 Sodium Chloride 0.9% [Normal Saline] 1,000 ml IV ASDIRECTED 12/31/19 17:17 Docusate Sodium [Colace] 100 mg PO TID PRN Omeprazole 20 mg PO DAILY PRN 12/31/19 Dinner Regular Diet [DIET] 12/31/19 18:18 Bladder Scan [RC] ASDIRECTED 12/31/19 20:00 Melatonin 9 mg PO BEDTIME Memantine [Namenda] 10 mg PO BID Propranolol [Inderal] 40 mg PO BID atorvaSTATin [Lipitor] 10 mg PO BEDTIME 01/01/20 08:00 Azithromycin [Zithromax] 500 mg Sodium Chloride 0.9% [Normal Saline (AdvBag)] 250 ml IV DAILY Diltiazem [Dilacor XR] 480 mg PO DAILY Ferrous Sulfate 325 mg PO DAILY cefTRIAXone [Rocephin] 1 gm IVPUSH DAILY - Plan Plan:: # Sepsis secondary to suspected pneumonia - resolved # Metastatic Lung cancer, known mets to brain, suspected mets to liver # Dehydration # A.fib - Patient came in with cough and vital sign instability (hypotension, tachycardia), LA 3.4. Repeat LA WNL after abx and fluid hydration. Vitals now WNL (tachy from a.fib) - CXR concerning for possible pneumonia; recieved Rocephin 1g and Azithro 500mg in the ED @ 1400 - CTa/p concerning for new liver mets Plan: - Continue IVF at 100mL/hr - O2 per NC as needed to maintain sats above 88% - I+Os - Pain control: tylenol, oxy 5mg, Morphine 1mg (mild/mod/sev) - Abx: continue Rocephin 1, Azithro 500mg daily - CBC and BMP in the am - Telemetry - Discussed with patient/niece that we will treat with IVF and abx. -We will plan to involve hospice for DC planning if she does well through the weekend Chronic: HTN - holding lisinopril 20mg daily A.fib - continue diltiazem 480 daily, propranolol 40mg BID Dementia - continue memantine 10mg BID HLD - continue lovastatin 20mg daily Constipation - continue docusae 100mg TID PRN Insomnia - schedule melatonin 10mg bedtime (PRN at home) Anemia - continue home iron GERD - continue home omeprazole 20mg daily PRN Appetite stim - holding home dexamethasone 4mg daily for 3 days PRN for appetite stim (give omeprazole with) Diet: Regular Activity: up with assistance DVT: SCDs (concern for brain bleed) Code Status: DNR/DNI per niece (confirmed with patient)
[2020-01-01] MEDS ORDERED: Atropine 1% Ophth Soln 5 ML BOTTLE SL SCH (15:00)
--- NOTE | 2020-01-01 15:11 | PCM.DCSUM1 ---
Discharge Summary - Hospital Course Free Text/Narrative:: Patient presented from home on 12/31/19 for weakness and dehydration and cough. Known history of metastatic lung cancer to brain and CT in the ED also demonstrated mets to the liver. She was initiated on fluid hydration as well as IV antibiotics for suspected CAP. On the morning of 12/31 patient was doing well. Coherent and polite with staff. Vital signs were good (rates in 110-120s with a.fib), breath sounds were good and BP was WNL. Physician paged around 1330 with update that patient's HR had dropped into the 40s and now exhibiting mottling and edema to lower extremity. Upon arrival to the floor patient's tele reading rates in the 30-60s. She is much less coherent than earlier. Discussed with family members (sister Allie and niece Magda) that I don't think this is secondary to her rate control medications from this morning as I saw her a few hours after admin and her rate and pressures were fine. Her respirations were becoming very shallow and that my concern was that she was nearing her final hours. Around 1445 her tele noted bradys down into the 20-30s. TOD called at 1447. - Discharge Data Discharge Date: 01/01/20 Discharge Disposition: 20 Event(s) Leading to Patient's *Q: Throughout the afternoon patient's heartrate dropped and respiratory effort become more shallow. At 1447 she went into assystole. Condition: - Referral to Home Health Primary Care Physician: PCP Not In Area - Discharge Diagnosis/Problem(s) (1) Pneumonia SNOMED Code(s): 053273747 ICD Code: J18.9 - PNEUMONIA, UNSPECIFIED ORGANISM Status: Acute Current Visit: Yes Qualifiers: Pneumonia type: due to unspecified organism Laterality: unspecified laterality Lung location: unspecified part of lung Qualified Code(s): J18.9 - Pneumonia, unspecified organism (2) Metastatic lung cancer (metastasis from lung to other site) SNOMED Code(s): 44908705, 067150236 ICD Code: C34.90 - MALIGNANT NEOPLASM OF UNSP PART OF UNSP BRONCHUS OR LUNG Status: Acute Current Visit: Yes Qualifiers: Laterality: unspecified laterality Qualified Code(s): C34.90 - Malignant neoplasm of unspecified part of unspecified bronchus or lung (3) Dehydration SNOMED Code(s): 11374437 ICD Code: E86.0 - DEHYDRATION Status: Acute Current Visit: Yes (4) Afib SNOMED Code(s): 27870718 ICD Code: I48.91 - UNSPECIFIED ATRIAL FIBRILLATION Status: Acute Current Visit: Yes (5) Sepsis SNOMED Code(s): 43193624 ICD Code: A41.9 - SEPSIS, UNSPECIFIED ORGANISM Status: Resolved Current Visit: Yes Qualifiers: Sepsis type: sepsis due to unspecified organism Sepsis acute organ dysfunction status: with acute organ dysfunction Severe sepsis acute organ dysfunction type: unspecified Severe sepsis shock status: unspecified Qualified Code(s): A41.9 - Sepsis, unspecified organism; R65.20 - Severe sepsis without septic shock - Discharge Plan *PRESCRIPTION DRUG MONITORING PROGRAM REVIEWED*: Not Applicable *COPY OF PRESCRIPTION DRUG MONITORING REPORT IN PATIENT EULALIA: Not Applicable Home Medications: Home Meds Docusate Sodium 100 mg PO TID PRN 12/31/19 [History] Ferrous Sulfate 325 mg PO DAILY 12/31/19 [History] Lovastatin 20 mg PO BEDTIME 12/31/19 [History] Melatonin 10 mg PO BEDTIME PRN 12/31/19 [History] Memantine [Namenda] 10 mg PO BID 12/31/19 [History] Omeprazole 20 mg PO DAILY PRN 12/31/19 [History] Propranolol [Inderal] 40 mg PO BID 12/31/19 [History] dexAMETHasone [Dexamethasone] 4 mg PO TID PRN 12/31/19 [History] dilTIAZem HCL [Diltiazem 24Hr ER] 480 mg PO DAILY 12/31/19 [History] lisinopriL [Lisinopril] 20 mg PO DAILY 12/31/19 [History] Referrals: PCP,Not In Area [Primary Care Provider] - - Discharge Summary/Plan Comment DC Time >30 min.: No - Patient Data Vitals - Most Recent: Last Vital Signs Temp 97.5 F 01/01/20 11:30 Pulse 63 01/01/20 11:30 Resp 20 01/01/20 11:30 BP 82/50 L 01/01/20 11:30 Pulse Ox 97 01/01/20 11:30 Weight - Most Recent: 130 lb I&O - Last 24 hours: Intake & Output 01/01/20 01/01/2020 06:59 14:59 22:59 Output Total 700 Balance -700 Lab Results - Last 24 hrs: Laboratory Results - last 24 hr 12/31/19 01/01/20 01/01/20 Range/Units 18:46 07:30 07:30 WBC 9.7 (4.0-10.0) x10^3/uL RBC 3.01 L (4.00-5.50) x10^6/uL Hgb 9.4 L D (12.0-16.0) g/dL Hct 30.1 L (33.0-47.0) % MCV 100.0 H D (78.0-93.0) fL MCH 31.2 (26.0-32.0) pg MCHC 31.2 L (32.0-36.0) g/dL RDW Coeff of Martín 17.2 H (10.0-15.0) % Plt Count 164 (130-400) x10^3/uL Neut % (Auto) 73.7 (50.0-80.0) % Lymph % (Auto) 15.6 L (25.0-50.0) % [place] % (Auto) 10.3 (2.0-11.0) % Eos % (Auto) 0.2 (0.0-4.0) % Baso % (Auto) 0.2 (0.2-1.2) % Sodium 143 (136-145) mmol/L Potassium 3.7 (3.5-5.1) mmol/L Chloride 108 H (98-107) mmol/L Carbon Dioxide 26 (21-32) mmol/L Anion Gap 12.7 (10-20) mmol/L BUN 25 H (7-18) mg/dL Creatinine 1.0 (0.55-1.02) mg/dL Est Cr Clr Drug Dosing 46.64 mL/min Estimated GFR (MDRD) 54 Glucose 105 (74-106) mg/dL Lactic Acid 1.6 (0.4-2.0) mmol/L Calcium 7.9 L (8.5-10.1) mg/dL Med Orders - Current: Current Medications Acetaminophen (Tylenol) 650 mg PO Q4H PRN PRN Reason: Pain (Mild 1-3)/fever Last Admin: 01/01/20 07:46 Dose: 650 mg Documented by: Atorvastatin Calcium (Lipitor) 10 mg PO BEDTIME REPLACED BY [facility] Last Admin: 12/31/19 20:23 Dose: 10 mg Documented by: Atropine Sulfate (Atropine 1% [facility]) 0 ml SL Q2H REPLACED BY [facility] Ceftriaxone Sodium (Rocephin) 1 gm IVPUSH DAILY [facility] BY [facility] Last Admin: 01/01/20 07:46 Dose: 1 gm Documented by: Diltiazem HCl (Dilacor Xr) 480 mg PO DAILY [facility] Last Admin: 01/01/20 07:46 Dose: 480 mg Documented by: Docusate Sodium (Colace) 100 mg PO TID PRN PRN Reason: Constipation Ferrous Sulfate (Ferrous Sulfate) 325 mg PO DAILY [facility] Last Admin: 01/01/20 07:46 Dose: 325 mg Documented by: Azithromycin 500 mg/ Sodium (Chloride) 250 mls @ 250 mls/hr IV DAILY [facility] Last Admin: 01/01/20 07:47 Dose: 250 mls/hr Documented by: Sodium Chloride (Normal Saline) 1,000 mls @ 100 mls/hr IV ASDIRECTED REPLACED BY [facility] Last Admin: 01/01/20 06:47 Dose: 100 mls/hr Documented by: Melatonin (Melatonin) 9 mg PO BEDTIME REPLACED BY [facility] Last Admin: 12/31/19 20:23 Dose: 9 mg Documented by: Memantine (Namenda) 10 mg PO BID REPLACED BY [facility] Last Admin: 01/01/20 07:46 Dose: 10 mg Documented by: Morphine Sulfate (Morphine) 1 mg IVPUSH Q2H PRN PRN Reason: Pain (severe 7-10) Omeprazole (Omeprazole) 20 mg PO DAILY PRN PRN Reason: Abdominal Pain Ondansetron HCl (Zofran Odt) 4 mg PO Q4H PRN PRN Reason: nausea, able to take PO Oxycodone HCl (Oxycodone) 5 mg PO Q4H PRN PRN Reason: Pain (moderate 4-6) Last Admin: 01/01/20 13:06 Dose: 5 mg Documented by: Propranolol HCl (Inderal) 40 mg PO BID REPLACED BY [facility] Last Admin: 01/01/20 07:46 Dose: 40 mg Documented by: Sodium Chloride (Saline Flush) 10 ml FLUSH ASDIRECTED PRN PRN Reason: Keep Vein Open Last Admin: 01/01/20 07:47 Dose: 10 ml Documented by: Discontinued Medications Ceftriaxone Sodium (Rocephin) 1 gm IVPUSH STAT ONE Stop: 12/31/19 14:44 Last Admin: 12/31/19 15:13 Dose: 1 gm Documented by: Diltiazem HCl (Cardizem) 20 mg IVPUSH ONETIME ONE Stop: 12/31/19 13:00 Last Admin: 12/31/19 13:04 Dose: 20 mg Documented by: Diltiazem HCl (Dilacor Xr) 240 mg PO DAILY [facility] Lactated Ringer's (Ringers, Lactated) 1,000 mls @ 999 mls/hr IV ONETIME ONE Stop: 12/31/19 12:36 Last Admin: 12/31/19 13:41 Dose: 200 mls/hr Documented by: Azithromycin 500 mg/ Sodium (Chloride) 250 mls @ 250 mls/hr IV STAT ONE Stop: 12/31/19 15:42 Last Admin: 12/31/19 15:14 Dose: 250 mls/hr Documented by: Iopamidol (Isovue-300 (61%)) 100 ml IVPUSH ONETIME ONE Stop: 12/31/19 13:34 Last Admin: 12/31/19 13:35 Dose: 100 ml Documented by: Morphine Sulfate (Morphine) 2 mg IVPUSH ONETIME ONE Stop: 12/31/19 11:38 Last Admin: 12/31/19 11:55 Dose: 2 mg Documented by: Ondansetron HCl (Zofran) 4 mg IV ONETIME ONE Stop: 12/31/19 11:37 Last Admin: 12/31/19 11:55 Dose: 4 mg Documented by: *Q Meaningful Use (DIS) - VTE *Q VTE Pharmacological Contraindications *Q: Risk of Bleeding
== END 2020-01-01 14:57 | disposition expired | DRG 871 ==
LOC: VM.ED 11:12 → VM.MS 15:21 → UNDOADMIN 15:21 → VM.ED 15:31 → UNDODISIN 01-01 14:57
PROVIDERS: ADMIT Family Medicine; ATTEND Family Medicine
DX: A41.9 Sepsis, unspecified organism (principal); J18.9 Pneumonia, unspecified organism; C34.90 Malignant neoplasm of unspecified part of unspecified bronchus or lung; C79.31 Secondary malignant neoplasm of brain; C78.7 Secondary malignant neoplasm of liver and intrahepatic bile duct; R53.1 Weakness; E46 Unspecified protein-calorie malnutrition; E86.0 Dehydration; Z66 Do not resuscitate; Z20.828 Contact with and (suspected) exposure to other viral communicable diseases; I48.91 Unspecified atrial fibrillation; R65.20 Severe sepsis without septic shock; I10 Essential (primary) hypertension; F03.90 Unspecified dementia, unspecified severity, without behavioral disturbance, psychotic disturbance, mood disturbance, and anxiety; E78.5 Hyperlipidemia, unspecified; K59.00 Constipation, unspecified; G47.00 Insomnia, unspecified; D64.9 Anemia, unspecified; K21.9 Gastro-esophageal reflux disease without esophagitis; R29.6 Repeated falls; Z23 Encounter for immunization; Z79.899 Other long term (current) drug therapy; Z87.891 Personal history of nicotine dependence; Z98.890 Other specified postprocedural states; Z80.0 Family history of malignant neoplasm of digestive organs; Z99.81 Dependence on supplemental oxygen; Z68.21 Body mass index [BMI] 21.0-21.9, adult
CPT/HCPCS: 36415; 71045; 74177; 80048; 80053; 83605; 83690; 84484; 85025; 86140; 93005; 93010; 94760; 96374; 96375; 99284; 99285-25; A9270-GY; J0456; J0696; J2270; J2405; J3490; J7030; J7050; J7120; Q9967; U0002